=== PATIENT | male | born 1990 | race Caucasian/White ===

== ENCOUNTER 2020-10-22 18:57 | Emergency (ER) | payer OTHER, SELFPAY ==
[2020-10-22] VITALS (9 sets, daily range): BP systolic 98–150; BP diastolic 55–90; PULSE 95–155; RESP 16–28; TEMP 36.6–36.7; O2SAT 90–99
--- NOTE | 2020-10-22 19:04 | ED.ALLEREA ---
HPI - Allergic Reaction General Chief complaint: Allergic Reaction Stated complaint: allergic reaction Time Seen by Provider: 10/22/20 19:14 Source: patient and family Mode of arrival: ambulatory Limitations: no limitations History of Present Illness HPI narrative: 30-year-old man a history of smoking comes in today complaining of wheezing, mild shortness of breath, rash and itching that started after he took some Aleve for a toothache. Patient states that it started almost immediately after taking the medication. He denies syncope, chest pain, vomiting, diarrhea, sweating, and has had no recent cough or cold symptoms. He denies having food allergies. 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 MD complaint: allergic reaction Onset (ago): hour(s) (2) Exposure: food and medication Symptoms: rash, itching and difficulty breathing Severity: moderate Treatment prior to arrival: benadryl (25 mg) Previous Allergic Reaction History: none Related Data Allergies Allergy/AdvReac Type Severity Reaction Status Date / Time amoxicillin Allergy Itching Verified 10/22/20 19:20 naproxen [From Aleve] Allergy Itching Verified 10/22/20 19:20 Review of Systems Review of Systems: All systems reviewed & are unremarkable except as noted in HPI and below Constitutional: Constitutional: Denies chills and Denies fever(s) Eyes: Eyes: Denies change in vision and Denies photophobia ENT: Denies dysphagia, Denies nasal congestion and Denies sore throat Cardiovascular: Cardiovascular: Denies chest pain and Denies radiating jaw, neck or arm pain Respiratory: Respiratory: Denies cough, Reports dyspnea and Reports wheezing Gastrointestinal: Gastrointestinal: Denies abdominal pain, Denies diarrhea, Denies nausea and Denies vomiting Genitourinary: Genitourinary: Denies hematuria, Denies dysuria and Denies urinary frequency Musculoskeletal: Musculoskeletal: Denies arthralgias and Denies joint swelling Integumentary/Breasts: Skin/Breast: Reports pruritus, Reports erythema and Reports rash Neurologic: Denies vertigo, Denies dizziness, Denies syncope, Denies focal weakness, Denies numbness and Denies weakness Hematologic/Lymphatic: Hematologic/Lymphatic: Denies easy bleeding and Denies easy bruising Allergic/Immunologic: Allergic/Immunologic: Denies lip swelling, Denies throat swelling and Denies tongue swelling [facility] Social History Social History (Updated 10/22/20 @ 19:24 by Tc Valdez MD) Smoking status: Current every day smoker Alcohol intake: current Substance use: current Substance use type: marijuana Other substance usage details: Occasional. Living arrangements: with family Gender identity (if verbalized by the patient): Male Exam Const: General: healthy appearing and alert Nutritional Appearance: obese Orientation/consciousness: patient oriented x3 Limitations: no limitations Other: Mild acute distress. No respiratory distress. HENMT: Head: normal to inspection Ears: external ears normal, EAC's normal and Abnormal EAC present General nose exam: Normal nares present Mouth: Yes moist mucous membranes Throat: posterior oropharynx normal Eyes: Conjunctivae: conjunctival abnormality ( Bilateral injection) Pupils: Equal, round and reactive pupils present EOM: EOMs intact bilaterally Resp: Effort & Inspection: normal respiratory effort and not labored Auscultation: wheezes expiratory wheezes and throughout Cardio: Rate: regular rate Rhythm: regular rhythm Heart sounds: no murmurs Skin: General skin exam: normal color, no jaundice and no pallor Other: Facial and neck erythema. Scattered urticarial wheals on trunk and extremities. Neuro: General: patient oriented x3, moves all extremities, no focal motor deficits and CN's II-XI intact bilaterally Speech: normal speech Gait exam (Neuro): Normal gait present Extrem: General: normal to inspection and no clubbing, cyanosis o
[2020-10-22] MEDS: ALBUTEROL SULFATE NEB 2.5 MG/3 ML INH INHALATION (19:26)
--- NOTE | 2020-10-22 19:33 | PC.NURSE ---
during IV attempt patient started kicking legs, jerked arm
[2020-10-22] MEDS: EPINEPHrine HCL INJ 1 MG/ML AMPUL 0.3 MG SUB-Q (19:35)
--- NOTE | 2020-10-22 19:36 | PC.NURSE ---
starting to apply heart leads patient crying, stating I am not sure I want these.
[2020-10-22] MEDS: diphenhydrAMINE HCl INJ 50 MG/ML VIAL 25 MG IV PUSH (19:49)
[2020-10-22] MEDS: methylPREDNISolone SOD SUCC 125 MG VIAL IV PUSH (19:50)
[2020-10-22] MEDS: SODIUM CHLORIDE 0.9% IV 1,000 ML 999 ML IV CONT (19:50)
--- NOTE | 2020-10-22 19:53 | ECG_ITS ---
Measurements Intervals [place] Rate: 111 P: 61 FL: 142 QRS: 83 QRSD: 89 T: 28 QT: 342 QTc: 466 Interpretive Statements SINUS TACHYCARDIA INCOMPLETE RIGHT BUNDLE BRANCH BLOCK DELAYED PRECORDIAL R/S TRANSITION BASELINE WANDER- II, III, V1, V3-V6 ABNORMAL ECG Electronically Signed On 10-22-2020 20:13:06 CDT by Jorge Norman D.O.
--- NOTE | 2020-10-22 19:53 | PC.NURSE ---
1935 epi given, started having chest pain, SOB & Anxious
--- NOTE | 2020-10-22 21:06 | PC.NURSE ---
2014 checking on IV, patient playing with tubing, explain would need to leave be so fluids could finish, 2049 again found patient playing with tube pinching it
== END 2020-10-22 22:05 | disposition left against medical advice (07) ==
PROVIDERS: Emergency Provider Emergency Medicine
DX: T78.40XA Allergy, unspecified, initial encounter (principal)
CPT/HCPCS: 93005; 94640; 96361; 96372; 96374; 96375; 99283; 99284; J0171; J1200; J2930; J7030

== ENCOUNTER 2020-10-25 14:46 | Outpatient (CLI) | payer OTHER, SELFPAY ==
[2020-10-25 15:28] LABS: Hematocrit 53.8 % (40.0-54.0); Hemoglobin 17.6 g/dL (14.0-18.0); Mean Corpuscular HGB Conc 32.7 g/dL (32.0-36.0); Mean Corpuscular Hemoglobin 29.2 pg (27.0-31.0); Mean Corpuscular Volume 89.2 fL (78.0-102.0); Mean Platelet Volume 10.8 fl (8.7-11.0); Platelet Count Result 298 K/mm3 (150-420); Red Blood Count 6.03 M/mm3 (4.70-6.10); Red Cell Distribution Width 12.7 % (11.6-14.4); White Blood Count 19.3 K/mm3 (4.8-10.8)
[2020-10-25 16:14] LABS: Alanine Aminotransferase 71 U/L (16-63); Albumin Level 3.9 g/dL (3.4-5.0); Alkaline Phosphatase 105 U/L (46-116); Anion Gap 9 mmol/L (8-16); Aspartate Amino Transferase 21 U/L (15-37); Bilirubin,Total 0.3 mg/dL (0.00-1.00); Blood Urea Nitrogen 12 mg/dL (7-18); Calcium 10.2 mg/dL (8.5-10.1); Carbon Dioxide 28 mmol/L (21-32); Chloride 102 mmol/L (98-108); Estimated Glomerular Filt Rate > 60; Glucose 103 mg/dL (70-99); Magnesium 2.4 mg/dL (1.8-2.4); Osmolality Calculated 287 mOsm/kg (285-295); Potassium 4.8 mmol/L (3.5-5.1); Sodium 139 mmol/L (136-145); Thyroid Stimulating Hormone 1.18 uIU/mL (0.36-3.74); Total Protein 7.7 g/dL (6.4-8.2)
[2020-10-25 16:37] LABS: Band Neutrophils Percent 2 % (0-6); Basophils Absolute Manual 0.19 K/mm3 (0-0.1); Basophils Percent Manual 1 % (0-1); Eosinophils Percent Manual 0 % (1-6); Lymphocytes Absolute Manual 3.08 K/mm3 (1.1-4.5); Lymphocytes Percent Manual 16 % (18-44); Monocytes Absolute Manual 0.57 K/mm3 (0.1-0.90); Monocytes Percent Manual 3 % (3-9); Neutrophils Absolute Manual 15.44 K/mm3 (1.3-6.7); Neutrophils Percent Manual 78 % (46-73); Platelet Estimate Adequate (Adequate); Total Cells Counted 100
--- NOTE | 2020-10-28 12:19 | WPDHOLTEREM ---
Holter/Event Monitor Holter/Event Monitor Date of procedure: 10/25/20 Holter/Event Procedure: 48 Hr Holter Monitor Indications: Arrhythmia Conclusion: 1. 48 hour holter monitor on 10/25/20. 2. Underlying rhythm is sinus rhythm. HR range 43-141 bpm; average HR 91 bpm. 3. There are 14 premature supraventricular complexes and 3 supraventricular couplets. No supraventricular tachycardia. 4. There are 3 ventricular trigeminy. No ventricular tachycardia. 5. No sinoatrial or atrioventricular blocks. No significant pauses greater than 2 seconds. 6. Patient reports symptoms of restlessness, exhaustion and some discomfort which demonstrate sinus rhythm, HR range 75-126 bpm.
== END 2020-10-25 14:47 | disposition home or self-care (01) ==
LOC: CHSCARD 14:49
PROVIDERS: PCP Nurse Practitioner Family; Visit Provider Nurse Practitioner Family
DX: I49.9 Cardiac arrhythmia, unspecified (principal); E83.42 Hypomagnesemia
CPT/HCPCS: 36415; 80053; 83735; 84443; 85025; 93225; 93226; 93227

== ENCOUNTER 2020-11-01 13:21 | Outpatient (CLI) | payer OTHER, SELFPAY ==
--- NOTE | 2020-11-01 13:24 | ECG_ITS ---
Measurements Intervals [place] Rate: 95 P: 57 [place]: 134 QRS: 94 QRSD: 84 T: 242 QT: 359 QTc: 453 Interpretive Statements SINUS RHYTHM RIGHT AXIS DEVIATION INCOMPLETE RIGHT BUNDLE BRANCH BLOCK DELAYED PRECORDIAL R/S TRANSITION BORDERLINE T WAVE ABNORMALITY- INF/LAT LEADS BORDERLINE ECG Electronically Signed On 11-01-2020 13:51:18 CDT by Jorge Norman D.O.
[2020-11-01 13:33] LABS: Basophils Absolute Auto 0.09 K/mm3 (0.00-0.10); Basophils Percent Auto 0.6 % (0.0-1.0); Eosinophils Absolute Auto 0.28 K/mm3 (0.02-0.50); Eosinophils Percent Auto 1.8 % (1.0-6.0); Hematocrit 50.5 % (40.0-54.0); Hemoglobin 16.7 g/dL (14.0-18.0); Immature Granulocyte Absolute 0.23 K/mm3 (0.00-0.00); Immature Granulocyte Percent A 1.4 % (0.0-0.0); Lymphocytes Absolute Auto 3.34 K/mm3 (1.10-4.50); Mean Corpuscular HGB Conc 33.1 g/dL (32.0-36.0); Mean Corpuscular Hemoglobin 29.3 pg (27.0-31.0); Mean Corpuscular Volume 88.8 fL (78.0-102.0); Mean Platelet Volume 9.8 fl (8.7-11.0); Monocytes Absolute Auto 1.02 K/mm3 (0.10-0.90); Monocytes Percent Auto 6.4 % (2.0-11.0); Neutrophils Percent Auto 68.8 % (50.0-70.0); Platelet Count Result 275 K/mm3 (150-420); Red Blood Count 5.69 M/mm3 (4.70-6.10); Red Cell Distribution Width 13.1 % (11.6-14.4); White Blood Count 15.9 K/mm3 (4.8-10.8)
[2020-11-01 13:52] LABS: Amphetamine Screen Urine Negative (Negative); Barbiturate Screen Urine Negative (Negative); Benzodiazepines Screen Urine Negative (Negative); Cannabinoid Screen Urine Negative (Negative); Cocaine Screen Urine Negative (Negative); Methadone Screen Urine Negative (Negative); Opiate Screen Urine Negative (Negative); Phencyclidine Screen Urine Negative (Negative)
== END 2020-11-01 13:22 | disposition home or self-care (01) ==
LOC: CHSLAB 13:24
PROVIDERS: PCP Nurse Practitioner Family; Visit Provider Nurse Practitioner Family
DX: R00.0 Tachycardia, unspecified (principal); Z01.818 Encounter for other preprocedural examination
CPT/HCPCS: 36415; 80307; 85025; 93005

== ENCOUNTER 2020-11-22 07:20 | Outpatient (CLI) | payer OTHER, SELFPAY ==
--- NOTE | 2020-11-22 07:29 | EST_ITS ---
Patient Info Name: Anton Briones Age: 30 years : 1990 Gender: Male Ht: 65 in Wt: 211 lbs BSA: 2.14 m2 HR: 71 bpm BP: 127 / 76 mmHg Heart Rhythm: Sinus Rhythm Technical Quality: Good Exam Date: 11/22/2020 8:47 AM Site Location: Site To Provide List Exam Location: [facility] Patient Status: Outpatient Admit Date: 11/22/2020 Staff Ordering Physician: Perla Raya NP Attending Provider: Jocelyne Diaz CEP Exercise Technologist: Irena Lopes CRT Exercise Physician: Jocelyne Diaz CEP Exam Type: CA stress jose l w NM Study Info Indications Arrythmia - SVT - A nuclear stress test was performed. History/Risk Factors Hypertension: Yes Tobacco Use: Current - Every Day History/Risk Factors HTN. Current Smoker. Summary 1. 1. Negative lexiscan stress test for ischemic ST changes by ECG criteria. 2. 2. Stable hemodynamics throughout the test. 3. 3. Nuclear scan to follow and will be reported separately. Please correlate with it. Protocol: LEXISCAN Stress ECG Details Stage: REST Duration (min): 1 min : 16 sec HR (bpm): 73 SBP (mmHg): 127 DBP (mmHg): 76 Stage: REST Duration (min): 1 min : 51 sec HR (bpm): 71 SBP (mmHg): 127 DBP (mmHg): 76 Stage: REST Duration (min): 9 min : 23 sec HR (bpm): 72 SBP (mmHg): 127 DBP (mmHg): 76 Stage: STAGE 1 Duration (min): 0 min : 7 sec HR (bpm): 71 SBP (mmHg): 127 DBP (mmHg): 76 Stage: RECOVERY Duration (min): 0 min : 52 sec HR (bpm): 101 SBP (mmHg): 127 DBP (mmHg): 76 Stage: RECOVERY Duration (min): 1 min : 52 sec HR (bpm): 102 SBP (mmHg): 118 DBP (mmHg): 77 Stage: RECOVERY Duration (min): 2 min : 52 sec HR (bpm): 97 SBP (mmHg): 117 DBP (mmHg): 77 Stage: RECOVERY Duration (min): 3 min : 52 sec HR (bpm): 96 SBP (mmHg): 119 DBP (mmHg): 78 Stage: RECOVERY Duration (min): 4 min : 52 sec HR (bpm): 91 SBP (mmHg): 124 DBP (mmHg): 80 Stage: RECOVERY Duration (min): 5 min : 52 sec HR (bpm): 88 SBP (mmHg): 120 DBP (mmHg): 83 Stage: RECOVERY Duration (min): 6 min : 17 sec HR (bpm): 91 SBP (mmHg): 120 DBP (mmHg): 83 Rest HR: 72 bpm Peak HR: 103 bpm Rest Sys BP: 127 mmHg Peak Sys BP: 124 mmHg Max Pred HR: 188 bpm % Max Pred HR: 55 % Target HR: 160 bpm Max RPP: 12,772 bpm*mmHg BP Response: Normal blood pressure response Termination Reason: Completion of Protocol Cardiac Symptoms: Flushing, Dyspnea Total Time: 0 min : 7 sec Rest Arcos BP: 76 mmHg Peak Arcos BP: 80 mmHg Total Dose: 0.4 mg Resting ECG Normal sinus rhythm, borderline T wave in inf/high lat leads. Stress ECG No ST changes. Arrhythmias None. Report Signatures
--- NOTE | 2020-11-22 12:00 | WPDCARIOSTRE ---
Nuclear Stress Test INDICATIONS Indications: Chest pain PROCEDURE Procedure Performed: Myocardial Perf Spect-Multi Procedure: Patient underwent a lexiscan stress test and immediately was injected with 33.8 mCi of cardiolyte. Multiple tomographic images were obtained. These are of good quality. There is evidence of small size, mild severity apical perfusion defect during stress imaging. A separate resting images were obtained after patient was injected with 10.4 mCi of cardiolyte. Multiple tomographic images were obtained. These are of good quality. There is evidence of small size, mild severity apical perfusion defect during stress imaging. CONCLUSION Conclusion: 1. Myocardial perfusion imaging demonstrating fixed apical perfusion defects suggestive of artifact. 2. No evidence of reversible ischemia. 3. Left ventriculogram demonstrates normal measured ejection fraction of 59% with no wall motion abnormalities. 4. TID score is normal at 0.99.
== END 2020-11-22 07:21 | disposition home or self-care (01) ==
LOC: CHSCARD 07:22
PROVIDERS: PCP Nurse Practitioner Family; Visit Provider Nurse Practitioner Family
DX: R00.0 Tachycardia, unspecified (principal); I49.9 Cardiac arrhythmia, unspecified
CPT/HCPCS: 78452; 93017; A9502; J2785